=== PATIENT | female | born 1955 | race Two or more races ===

== ENCOUNTER → 2016-07-23 | Outpatient (CLI) | payer OTHER, MEDICAID ==
[~2016-07-23] MED LIST: BENA5TAB3 OR; GAB300C OR; INSUPOW SC; METF-312 PO; OXYC10TA44 PO; SIMV10TA84 PO
[2016-07-23 14:13] LABS: Albumin 3.9 g/dL (3.4-5.0); BUN/Creatinine Ratio 37.8; Bilirubin, Total 0.3 mg/dL (0.2-1.0); Calcium 9.2 mg/dL (8.5-10.1); Potassium 3.7 mmol/L (3.5-5.1); Total Protein 7.7 g/dL (6.4-8.2)
[2016-07-23 14:26] LABS: Basophils # (auto) 0 uL; Basophils % (auto) 0.3 % (0.0-2.0); Eosinophils # (auto) 0.2 uL; Eosinophils % (auto) 1.4 % (0.0-7.0); Hematocrit 45.7 % (36.0-46.0); Hemoglobin 14.8 g/dL (12.2-16.2); Lymphocytes # (auto) 2.5 uL; Lymphocytes % (auto) 19.5 % (10.0-50.0); Mean Corpuscular Hemoglobin 29.8 pg (28.0-32.0); Mean Corpuscular Hgb Conc. 32.3 g/dL (32.0-36.0); Mean Platelet Volume 9.8 fL (7.4-10.4); Monocytes # (auto) 0.9 uL; Monocytes % (auto) 6.7 % (0.0-12.0); Neutrophils # (auto) 9.4 uL; Neutrophils % (auto) 72.1 % (37.0-80.0); Platelet Count (auto) 234 10^3/uL (140-450); Red Cell Distribution Width 13.7 % (11.6-16.0)
== END | disposition home or self-care (01) ==
LOC: LAB 12:33
DX: I10 Essential (primary) hypertension (principal); M25.50 Pain in unspecified joint; M06.9 Rheumatoid arthritis, unspecified; D64.9 Anemia, unspecified; Z79.899 Other long term (current) drug therapy
CPT/HCPCS: 36415; 80053; 85025; 85652; 86141

== ENCOUNTER 2016-08-11 21:36 | Emergency (ER) | payer OTHER, MEDICAID ==
[~2016-08-11] VITALS: Ht 160 cm; Wt 87.1 kg
[2016-08-11 21:49] VITALS: BP 175/96
== END 2016-08-12 | disposition left against medical advice (07) ==
LOC: ER 21:39
DX: M25.551 Pain in right hip (principal); M54.9 Dorsalgia, unspecified; G89.29 Other chronic pain; Z53.21 Procedure and treatment not carried out due to patient leaving prior to being seen by health care provider

== ENCOUNTER 2018-12-04 20:37 | Emergency (ER) | payer OTHER, MEDICAID ==
[~2018-12-04] VITALS: Ht 157.5 cm; Wt 81.6 kg
[~2018-12-04 20:37] MED LIST changes: -BENA5TAB3 OR; +BENA5TAB5 OR; -GAB300C OR; +GABA300C11 OR; -METF-312 PO; +METF-370 PO
[2018-12-04 23:01] VITALS: BP 126/83
[2018-12-05] MEDS ORDERED: LIDOCAINE 1% HCL (LOCAL ANESTH.) INJ 20ML MDV ID ONE
[2018-12-05] MEDS ORDERED: TRIAMCINOLONE 40MG/ML 1ML VIAL IM ONE
== END 2018-12-05 03:44 | disposition home or self-care (01) ==
LOC: ER 20:38
DX: M75.82 Other shoulder lesions, left shoulder (principal); E11.9 Type 2 diabetes mellitus without complications; E78.5 Hyperlipidemia, unspecified
CPT/HCPCS: 73200; 99284; J2001; J3301